=== PATIENT | female | born 1980 | race Caucasian/White ===

== ENCOUNTER 2018-09-20 08:00 | Emergency (ER) | payer OTHER ==
[2018-09-20 08:13] VITALS: BMI 22.2
[2018-09-20] MEDS ORDERED: ACETAMINOPHEN INJECTION 100 ML IVPB ONE (08:56)
[2018-09-20] MEDS ORDERED: DIPHTH,PERTUSS(ACELL),TET 0.5 ML DISP.SYRIN IM ONE (08:56)
[2018-09-20] MEDS ORDERED: ACETAMINOPHEN 1000 MG/100 ML VIAL (NON FORMULARY) IVPB ONE (08:58)
[2018-09-20 09:20] LABS: BASO % 0.4 % (0-2.0); EOS % 0.8 % (0-4.5); HEMATOCRIT 28.1 % (32.4-45.2); HEMOGLOBIN 8.6 GM/dL (10.7-15.3); LYMPH % 19.5 % (8-40); MCH 20.9 pg (25.7-33.7); MCHC 30.7 g/dl (32.0-36.0); MEAN PLT VOLUME 8.5 fl (7.5-11.1); MONO % 8.1 % (3.8-10.2); NEUT % 71.2 % (42.8-82.8); PLATELET COUNT 289 K/MM3 (134-434); RBC 4.13 M/mm3 (3.60-5.2); RDW 18.5 % (11.6-15.6); WHITE BLOOD COUNT 7.3 K/mm3 (4.0-10.0)
[2018-09-20 09:50] LABS: ALBUMIN 4.2 g/dl (3.4-5.0); ALK PHOS 74 U/L (45-117); ANION GAP 6 MMOL/L (8-16); BILIRUBIN,TOTAL 0.2 mg/dL (0.2-1); BLOOD UREA NITROGEN 11 mg/dL (7-18); CALCIUM 8.9 mg/dL (8.5-10.1); CHLORIDE 109 mmol/L (98-107); CO2 24 mmol/L (21-32); CREATININE 0.5 mg/dL (0.55-1.3); GLUCOSE,RANDOM 105 mg/dL (74-106); POTASSIUM 4.1 mmol/L (3.5-5.1); SGOT/AST 16 U/L (15-37); SGPT/ALT 16 U/L (13-61); SODIUM 138 mmol/L (136-145); TOT PROT 7.5 g/dl (6.4-8.2)
[2018-09-20] MEDS ORDERED: IBUPROFEN 400 MG TABLET (FP) PO ONE ×2 (12:25→12:29)
[2018-09-20] MEDS ORDERED: BACITRACIN 0.9 GM PACKET ONE (13:51)
[2018-09-20 14:20] LABS: ANISOCYTOSIS 2+; MACROCYTOSIS 0; OVALOCYTE 1+; PLATELET ESTIMATE NORMAL; TARGET CELLS 1+; TEAR DROP CELLS 1+
[2018-09-20 14:27] VITALS: BP 111/69; PULSE 71; TEMP 98.3
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
== END 2018-09-20 14:55 | disposition home or self-care (01) ==
LOC: JER 08:00
PROC: 3E033NZ Introduction of Analgesics, Hypnotics, Sedatives into Peripheral Vein, Percutaneous Approach (ICD-10-PCS; principal; 2018-09-20)
DX: S60.211A Contusion of right wrist, initial encounter (principal); R55 Syncope and collapse; S13.9XXA Sprain of joints and ligaments of unspecified parts of neck, initial encounter; S02.2XXB Fracture of nasal bones, initial encounter for open fracture; V43.52XA Car driver injured in collision with other type car in traffic accident, initial encounter; Y93.89 Activity, other specified; Y92.410 Unspecified street and highway as the place of occurrence of the external cause; T14.8XXA Other injury of unspecified body region, initial encounter
CPT/HCPCS: 36415; 70450-TC; 71045-TC-FY; 72070-TC-FY; 72100-TC-FY; 72125-TC; 73030-TC-LT-FY; 73110-TC-RT-FY; 80053; 84703; 85025; 99282-25; J0131

== ENCOUNTER 2018-09-20 20:46 | Emergency (ER) | payer OTHER ==
--- NOTE | 2018-09-20 20:50 | PDOC ---
Rapid Medical Evaluation Chief Complaint: Pain Time Seen by Provider: 09/20/18 20:48 Medical Evaluation: Allergies Allergy/AdvReac Type Severity Reaction Status Date / Time No Known Allergies Allergy Verified 09/20/18 09:03 09/20/18 20:49 I have personally performed a brief examination of the patient. CC: "body Pain" HPI: Pt was evaluated in the ED earlier today and states she has a nasal fracture and "my body hurts all over." PE: Skin: Clear Lungs: Clear Heart RRR MS: Move all extremities Neuro: Alert Psych: Appropriate affect The patient will proceed to [facility] for further evaluation. Discharge Disposition - Diagnosis Musculoskeletal pain - Referrals - Patient Instructions - Post Discharge Activity
[2018-09-20 20:52] VITALS: BP 118/78; PULSE 75; TEMP 98; BMI 23.2
[2018-09-20] MEDS ORDERED: KETOROLAC TROMETHAMINE 60 MG/2 ML VIAL IM ONE (21:05)
[2018-09-20] MEDS ORDERED: KETOROLAC TROMETHAMINE 60 MG/2 ML VIAL ONE (21:07)
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
== END 2018-09-20 21:17 | disposition home or self-care (01) ==
LOC: JERFT 20:46
PROC: 3E0233Z Introduction of Anti-inflammatory into Muscle, Percutaneous Approach (ICD-10-PCS; principal; 2018-09-20)
DX: M79.18 Myalgia, other site (principal); S16.1XXD Strain of muscle, fascia and tendon at neck level, subsequent encounter; V43.52XD Car driver injured in collision with other type car in traffic accident, subsequent encounter; Y93.89 Activity, other specified; Y92.410 Unspecified street and highway as the place of occurrence of the external cause
CPT/HCPCS: 99281-25

== ENCOUNTER 2018-10-26 14:58 | Emergency (ER) | payer SELFPAY ==
[2018-10-26 15:04] VITALS: BP 114/64; PULSE 78; TEMP 98; BMI 23.2
[2018-10-26] MEDS ORDERED: AMOX TR/POT CLAV 875MG/125MG TABLETS (FP) PO ONE (15:05)
--- NOTE | 2018-10-26 15:05 | PDOC ---
Rapid Medical Evaluation Time Seen by Provider: 10/26/18 15:00 Medical Evaluation: Allergies Allergy/AdvReac Type Severity Reaction Status Date / Time No Known Allergies Allergy Verified 09/20/18 21:00 10/26/18 15:00 I have performed a brief in-person evaluation of this patient. The patient presents with a chief complaint of: "i got attacked by my friend's cat", pt UTD with tetanus, cat has not been vaccinated in 2 years, pt states she will think about whether or not she wants rabies shots Pertinent physical exam findings: multiple sperficial healing lacs to face, erythema/swelling to left eyelid, lacs to scalp I have ordered the following: augmentin The patient will proceed to the ED for further evaluation.
[2018-10-26] MEDS ORDERED: AMOX TR/POT CLAV 875MG/125MG TABLETS (FP) ONE (16:19)
[2018-10-26] MEDS ORDERED: BACITRACIN 15 GM TUBE TOPICAL OINTMENT TP ONE (16:28)
--- NOTE | 2018-10-26 16:35 | PDOC ---
History of Present Illness - General Chief Complaint: Laceration Stated Complaint: CAT ATTACK Time Seen by Provider: 10/26/18 15:00 History Source: Patient Exam Limitations: No Limitations - History of Present Illness Occurred: reports: yesterday Severity: reports: mild, moderate Pain Location: reports: face, mouth Modifying Factors: improves with: cold therapy, other Associated Symptoms (Fall): denies symptoms Past History - Travel Traveled outside of the country in the last 30 days: No Close contact w/someone who was outside of country & ill: No - Past Medical History Allergies/Adverse Reactions: Allergies Allergy/AdvReac Type Severity Reaction Status Date / Time No Known Allergies Allergy Verified 10/26/18 15:04 Home Medications: Ambulatory Orders Amox-Tr/K Cl [Augmentin 875Mg Tablet] 1 tab PO BID #20 tablet 10/26/18 COPD: No - Immunization History Immunization Up to Date: No - Suicide/Smoking/Psychosocial Hx Smoking History: Unknown if ever smoked Have you smoked in the past 12 months: No Information on smoking cessation initiated: No Hx Alcohol Use: No Drug/Substance Use Hx: No Review of Systems - Review of Systems Able to Perform ROS?: Yes Is the patient limited Ukrainian proficient: Yes Constitutional: Yes: Symptoms Reported, See HPI, Malaise. No: Fever HEENTM: Yes: See HPI. No: Symptoms Reported Respiratory: Yes: See HPI, Cough Musculoskeletal: Yes: Symptoms Reported, See HPI Integumentary: Yes: Symptoms Reported, See HPI, Other (multiple superficial scratches ) All Other Systems: Reviewed and Negative *Physical Exam - Vital Signs Last Vital Signs Temp Pulse Resp BP Pulse Ox 98.0 F 78 16 114/64 100 10/26/18 15:03 10/26/18 15:03 10/26/18 15:03 10/26/18 15:03 10/26/18 15:03 - Physical Exam General Appearance: Yes: Nourished, Appropriately Dressed, Apparent Distress, Mild Distress HEENT: positive: DALY, TMs Normal, Pharynx Normal. negative: Nasal Congestion, Rhinorrhea Neck: positive: Tender, Supple Integumentary: positive: Normal Color, Other ( with multiple superficial lacerations consistent with cat scratches, left wrist, left shoulder, multiple on the neck, multiple on the back of the neck, multiple him scalp, one to left upper lid with mild ecchymoses. None of these scratches are full-thickness or gaping, none are actively bleeding. There are no) Neurologic: positive: bonding molder II-XII NML intact, Fully Oriented ED Treatment Course - Medications Given in the ED: ED Medications Discontinued Medications Generic Name Dose Route Start Last Admin Trade Name Alexis PRN Reason Stop Dose Admin Amoxicillin/Clavulanate Potassium 1 tab 10/26/18 15:05 10/26/18 16:20 Augmentin - 875mg Tablet PO 10/26/18 15:06 1 tab ONCE ONE Administration Progress Note - Progress Note Progress Note: Multiple Cat Scratches,= patients family pet, all occurred yesterday. We will treat with Augmentin, patient will return home to soak wounds and apply bacitracin ointment to areas and follow-up as needed. Tetanus is up-to-date *DC/Admit/Observation/Transfer Diagnosis at time of Disposition: Cat scratch Cat scratch of face Qualifiers: Encounter type: initial encounter Qualified Code(s): S00.81XA - Abrasion of other part of head, initial encounter - Discharge Dispostion Disposition: HOME Condition at time of disposition: Stable Decision to Admit order: No - Prescriptions Prescriptions: Amox-Tr/K Cl [Augmentin 875Mg Tablet] 1 tab PO BID #20 tablet - Referrals - Patient Instructions Printed Discharge Instructions: DI for Cat Scratch Disease/Fever Additional Instructions: Soak wounds in one to 2 times daily in shower or bathtub and reapply bacitracin ointment until healed. Watch carefully for any redness, swelling, evidence of infection and seek medical attention if needed. Complete Augmentin 875 mg tablet twice a day for 10 days total May use Tylenol or Motrin for pain and fever relief - Post Discharge Activity Forms/Work/School Notes: Back to Work
[2018-10-26] MEDS ORDERED: BACITRACIN 15 GM TUBE TOPICAL OINTMENT ONE (16:50)
== END 2018-10-26 17:12 | disposition home or self-care (01) ==
LOC: JERFT 14:58
DX: S00.81XA Abrasion of other part of head, initial encounter (principal); S10.81XA Abrasion of other specified part of neck, initial encounter; S60.812A Abrasion of left wrist, initial encounter; S60.811A Abrasion of right wrist, initial encounter; S00.01XA Abrasion of scalp, initial encounter; W55.03XA Scratched by cat, initial encounter; Y93.89 Activity, other specified; Y92.89 Other specified places as the place of occurrence of the external cause; Y99.8 Other external cause status
CPT/HCPCS: 99281-25

== ENCOUNTER 2019-07-31 19:36 | Emergency (ER) | payer SELFPAY ==
[2019-07-31] MEDS ORDERED: IBUPROFEN 600 MG TABLET (FP) PO ONE ×2 (19:50→20:57)
--- NOTE | 2019-07-31 19:52 | PDOC ---
Rapid Medical Evaluation Chief Complaint: Cold Symptoms Time Seen by Provider: 07/31/19 19:49 Medical Evaluation: Allergies Allergy/AdvReac Type Severity Reaction Status Date / Time No Known Allergies Allergy Verified 10/26/18 15:04 07/31/19 19:51 Pt c/o: cough,fever, body aches, urinary burning Pt on brief exam: tachy, febrile pt ordered for: motrin, influenza, ua ucx pt to proceed to the ED Discharge Disposition - Diagnosis Fever - Referrals - Patient Instructions - Post Discharge Activity
[2019-07-31 19:58] VITALS: BP 115/65; TEMP 102.8; BMI 23.2
[2019-07-31] MEDS ORDERED: ONDANSETRON *ODT* 4 MG TABLET SL ONE (20:58)
[2019-07-31 21:08] LABS: EPI CELLS 1.4 /HPF (0-5/HPF); HYALINE CASTS 0 /lpf (0-8); PH,URINE 8.5 (5.0-8.0); URINE APPEARANCE CLEAR; URINE BACTERIA 52.8 /hpf (NEGATIVE); URINE BILIRUBIN NEGATIVE (NEGATIVE); URINE COLOR YELLOW; URINE GLUCOSE (UA) NEGATIVE (NEGATIVE); URINE KETONE NEGATIVE (NEGATIVE); URINE LEUK ESTERASE NEGATIVE (NEGATIVE); URINE NITRITE NEGATIVE (NEGATIVE); URINE PROTEIN NEGATIVE (NEGATIVE); URINE RBC 1 /hpf (0-4); URINE WBC 1 /hpf (0-5)
[2019-07-31] MEDS ORDERED: ONDANSETRON 8 MG TABLET (FP) PO ONE (21:36)
[2019-07-31 22:01] VITALS: PULSE 82
--- NOTE | 2019-08-05 21:33 | PDOC ---
Documentation entered by Uzma Mahajan SCRIBE, acting as scribe for Nory Garcia MD. Nory Garcia MD: This documentation has been prepared by the ruthibe, Uzma Mahajan SCRIBE, under my direction and personally reviewed by me in its entirety. I confirm that the documentation accurately reflects all work, treatment, procedures, and medical decision making performed by me. History of Present Illness - General Chief Complaint: Pain Stated Complaint: COLD SYMPTOMS/FEVER Time Seen by Provider: 07/31/19 19:49 History Source: Patient Exam Limitations: No Limitations - History of Present Illness Initial Comments: 07/31/19 20:40 The patient is a 38-year-old female with no reported past medical history who presents to the emergency department with cold symptoms. The patient presents with fever, chills, sore throat, nausea, vomiting, diarrhea, dysuria, and body aches. The patient reports taking Tylenol and dayquil for the symptoms without relief. Denies sick contacts. Denies getting the flu shot this year. Denies daily medication use. Past History - Past Medical History Allergies/Adverse Reactions: Allergies Allergy/AdvReac Type Severity Reaction Status Date / Time No Known Allergies Allergy Verified 07/31/19 19:51 Home Medications: Ambulatory Orders Amox-Tr/K Cl [Augmentin 875Mg Tablet] 1 tab PO BID #20 tablet 10/26/18 COPD: No - Immunization History Immunization Up to Date: No - Psycho Social/Smoking Cessation Hx Smoking History: Never smoked Have you smoked in the past 12 months: No Information on smoking cessation initiated: No Hx Alcohol Use: No Drug/Substance Use Hx: No Review of Systems - Review of Systems Able to Perform ROS?: Yes Comments:: 07/31/19 20:34 CONSTITUTIONAL: +fever, chills. Absent: diaphoresis, generalized weakness, malaise, loss of appetite HEENT: +sore throat, Absent: rhinorrhea, nasal congestion, throat swelling, difficulty swallowing, mouth swelling, ear pain, eye pain, visual Changes CARDIOVASCULAR: +pleuritic chest pain. Absent: syncope, palpitations, irregular heart rate, lightheadedness, peripheral edema RESPIRATORY: +cough. Absent: shortness of breath, dyspnea with exertion, orthopnea, wheezing, stridor , hemoptysis GASTROINTESTINAL: +nausea, vomiting and diarrhea. Absent: abdominal pain, abdominal distension, constipation, melena, hematochezia GENITOURINARY: +dysuria. Absent: frequency, urgency, hesitancy, hematuria, flank pain, genital pain MUSCULOSKELETAL: Absent: myalgia, arthralgia, joint swelling SKIN: Absent: rash, itching, pallor HEMATOLOGIC/IMMUNOLOGIC: Absent: easy bleeding, easy bruising, lymphadenopathy, frequent infections ENDOCRINE: Absent: unexplained weight gain, unexplained weight loss, heat intolerance, cold intolerance NEUROLOGIC: Absent: headache, focal weakness or paresthesias, dizziness, unsteady gait, seizure, mental status changes, bladder or bowel incontinence PSYCHIATRIC: Absent: anxiety, depression, suicidal or homicidal ideation, hallucinations. *Physical Exam - Vital Signs Last Vital Signs Temp Pulse Resp BP Pulse Ox 102.8 F H 111 H 18 115/65 100 07/31/19 19:49 07/31/19 19:49 07/31/19 19:49 07/31/19 19:49 07/31/19 19:49 - Physical Exam 07/31/19 20:35 GENERAL: Well developed, well nourished. Awake and alert. No acute distress. HEENT: +Oropharynx erythematous without exudate. Normocephalic, atraumatic. PERRLA, EOMI. No conjunctival pallor. Sclera are non- icteric. Moist mucous membranes. NECK: Supple. Full ROM. No JVD. CARDIOVASCULAR: tachycardiac. PULMONARY: No evidence of respiratory distress. Lungs clear to auscultation bilaterally. No wheezing, rales or rhonchi. ABDOMINAL: Soft. Non-tender. Non-distended. No rebound or guarding. MUSCULOSKELETAL Normal range of motion at all joints. No bony deformities or tenderness. EXTREMITIES: No cyanosis. No clubbing. No edema. No calf tenderness. SKIN: Warm and dry. Normal capillary refill. No rashes. No jaundice. NEUROLOGICAL: Alert, awake, appropriate. Cranial nerves 2-12 intact. PSYCHIATRIC: Cooperative. Good eye contact. Appropriate mood and affect. ED Treatment Course - ADDITIONAL ORDERS Additional order review: Laboratory Results 07/31/19 20:50 Urine Color Yellow Urine Appearance Clear Urine pH 8.5 H Ur Specific Counce 1.005 L Urine Protein Negative Urine Glucose (UA) Negative Urine Ketones Negative Urine Blood 2+ H Urine Nitrite Negative Urine Bilirubin Negative Urine Urobilinogen 1.0 Ur Leukocyte Esterase Negative Urine WBC (Auto) 1 Urine RBC (Auto) 1 Urine Casts (Auto) 0 U Epithel Cells (Auto) 1.4 Urine Bacteria (Auto) 52.8 - Medications Given in the ED: ED Medications Discontinued Medications Generic Name Dose Route Start Last Admin Trade Name Freq PRN Reason Stop Dose Admin Ibuprofen 600 mg 07/31/19 19:50 07/31/19 21:18 Motrin - PO 07/31/19 19:51 600 mg ONCE ONE Administration Discharge - Discharge Information Problems reviewed: Yes Clinical Impression/Diagnosis: Influenza A Fever Qualifiers: Fever type: due to other condition Qualified Code(s): R50.81 - Fever presenting with conditions classified elsewhere Condition: Stable Disposition: HOME - Admission No - Follow up/Referral - Patient Discharge Instructions Patient Printed Discharge Instructions: DI for Influenza -- Adult Additional Instructions: You have the flu Please take Tylenol or Motrin for fever and body aches Please rest Drink plenty of liquids and stay hydrated If you develop any difficulties breathing ,please return - Post Discharge Activity
== END 2019-07-31 21:37 | disposition home or self-care (01) ==
LOC: JER 19:36
DX: J09.X2 Influenza due to identified novel influenza A virus with other respiratory manifestations (principal)
CPT/HCPCS: 81003; 87070; 87086; 87804; 87880; 99283-25; Q0162

== ENCOUNTER 2022-06-23 15:11 | Emergency (ER) | payer OTHER ==
[2022-06-23 15:55] VITALS: BP 112/71; PULSE 64; RESP 18; TEMP 98.1; BMI 27.4
[2022-06-23 17:02] LABS: EPI CELLS 3 /uL (0-25.1); HCG,QUALITATIVE URINE Negative; HYALINE CASTS 0 /uL (0-3.1); URINE APPEARANCE CLOUDY; URINE BILIRUBIN NEGATIVE (NEGATIVE); URINE COLOR DK YELLOW; URINE GLUCOSE (UA) NEGATIVE (NEGATIVE); URINE KETONE NEGATIVE (NEGATIVE); URINE LEUK ESTERASE 2+ (NEGATIVE); URINE NITRITE POSITIVE (NEGATIVE); URINE PROTEIN NEGATIVE (NEGATIVE); URINE RBC 10 /uL (0-23.9); URINE WBC 45 /uL (0-25.8)
== END 2022-06-23 17:20 | disposition home or self-care (01) ==
LOC: JER 15:11
DX: N30.00 Acute cystitis without hematuria (principal)
CPT/HCPCS: 81003; 84703; 87086; 87186; 99283-25